=== PATIENT | female | born 1995 | race Two or more races ===

== ENCOUNTER 2018-09-10 07:11 | Emergency (ER) | payer OTHER ==
[2018-09-10 07:20] VITALS: BP 124/70
[2018-09-10] MEDS ORDERED: ERYTHROMYCIN 0.5% OPH OINT 1 GM UNIT DOSE OD ONE (08:04)
--- NOTE | 2018-09-10 08:11 | ER Document Report ---
ED General - General Chief Complaint: Vaginal Discharge Stated Complaint: SORE THROAT Time Seen by Provider: 09/10/18 07:55 Primary Care Provider: [facility] [Provider Group] - Follow up in 3-5 days [facility]Provider [facility] - Follow up in 3-5 days TRAVEL OUTSIDE OF THE [place] IN LAST 30 DAYS: No - HPI Notes: Patient is a 22-year-old female that presents to the emergency department for multiple chief complaints. Patient complaining of vaginal itching burning and discharge for the last week. She did try Monistat 7 and states today is her last day. She reports vaginal discharge has improved but the external itching and irritation has not. She reports frequent yeast infections and states this feels the same. She states she tested negative for gonorrhea and chlamydia 2 weeks ago and has only been sexually active with one partner. She is not currently on control and has not checked for . LMP 08/17/2018 which was reportedly normal for her. Patient also complaining of a sore throat and redness in her right eye that began last night. She states the throat feels scratchy and irritated. She denies fever, chills, cough or congestion. She reports drainage and redness in the right eye as well as a burning sensation. She denies ocular itching. She has not taken any medicine at home for symptoms. Past Medical History: Negative Past Surgical History: Negative Social History: Occasional alcohol. Denies tobacco or drug use Family History: Reviewed and noncontributory for presenting illness Allergies: Reviewed, see documented allergy list. REVIEW OF SYSTEMS: CONSTITUTIONAL : No fever No chills No diaphoresis No recent illness EENT: Red eye No vision changes No congestion Nsore throat CARDIOVASCULAR: No chest pain No palpitations RESPIRATORY: No shortness of breath No cough No difficulty breathing GASTROINTESTINAL: No abdominal pain No nausea No vomiting No diarrhea GENITOURINARY: Vaginal itching Vaginal discharge No dysuria No hematuria No difficulty urinating MUSCULOSKELETAL: No back pain No leg pain No arm pain SKIN: No rashes No lesions LYMPHATIC: No swollen, enlarged glands. NEUROLOGICAL: No lightheadedness No headache No weakness No paresthesias PSYCHIATRIC: No anxiety No depression PHYSICAL EXAMINATION: Vital signs reviewed, nursing noted reviewed. GENERAL: Well-appearing, well-nourished and in no acute distress. HEAD: Atraumatic, normocephalic. EYES: PERRLA, EOM, normal conjunctiva left eye, right conjunctival injection, no pain with ocular movement of right eye, clear right eye discharge. No periorbital erythema or edema. ENT: nares patent, mild bilateral tonsillar edema and erythema without exudates, uvula midline, moist mucous membranes. NECK: Normal range of motion, supple without lymphadenopathy LUNGS: Breath sounds clear to auscultation bilaterally and equal. No wheezes rales or rhonchi. HEART: Regular rate and rhythm without murmurs ABDOMEN: Soft, nontender, normoactive bowel sounds. No rebound, guarding, or rigidity. No masses appreciated. : Labial erythema with no external ulcerations or vesicles, thick white vaginal discharge, no cervical motion tenderness or adnexal tenderness, uterus soft and nontender EXTREMITIES: Nontender, good range of motion, no pitting or edema. NEUROLOGICAL: No focal neurological deficits. Moves all extremities spontaneously Motor and sensory grossly intact on exam. PSYCH: Normal mood, normal affect. SKIN: Warm, Dry, normal turgor, no rashes or lesions noted on exposed skin - Related Data Allergies/Adverse Reactions: kiwi Allergy (Verified 09/10/18 07:16) vancomycin Allergy (Verified 09/10/18 07:16) Past Medical History - Social History Smoking Status: Never Smoker Family History: Reviewed & Not Pertinent Physical Exam - Vital signs Vitals: Temp Pulse Resp BP Pulse Ox 98.0 F 92 14 124/70 97 09/10/18 07:19 09/10/18 07:19 09/10/18 07:19 09/10/18 07:19 09/10/18 07:19 Course - Re-evaluation Re-evalutation: 09/10/18 08:09 Vitals reviewed. Nursing notes reviewed. Patient was offered pelvic exam but since she had a negative gonorrhea and chlamydia test 2 weeks ago she has deferred this exam. She states her symptoms feel exactly like yeast infection she has had in the past. Her symptoms do sound consistent with yeast vaginitis and she will be treated with Diflucan. Patient told to follow with her residential glazier if your symptoms are not improving, she will be prescribed a second dose of Diflucan to take in a week if symptoms persist. Patient also has erythema to her right eye with clear drainage. There is no foreign material. Her symptoms are consistent with conjunctivitis either viral or bacterial. Patient will be covered with erythromycin ophthalmic. She does wear contact lenses and was instructed to keep them out until her symptoms completely resolve. She does not sleep in her contacts and there is no corneal ulcer or iritis. 09/10/18 10:00 Patient's rapid strep is negative. Her sore throat is likely viral in nature. There is no sign of peritonsillar retropharyngeal abscess or to necessitate further work-up. Patient has a negative urine test and UA is negative for acute infection. She is now requesting to have a pelvic exam performed and tested for gonorrhea and chlamydia. 09/10/18 10:25 Patient's pelvic exam shows thick white vaginal discharge with some erythematous irritation to her labia consistent with yeast vaginitis. Gonorrhea and Chlamydia cultures have been ordered. Patient does not wish to be prophylactically treated for gonorrhea and chlamydia. She would like to receive a phone call with her results and not wait in the emergency room for them. Patient was encouraged to follow with gynecology and primary care. Laboratory 09/10/18 09/10/18 08:10 08:10 Urine Color YELLOW Urine Appearance CLOUDY Urine pH 6.0 Ur Specific Sunset 1.026 Urine Protein NEGATIVE Urine Glucose (UA) NEGATIVE Urine Ketones NEGATIVE Urine Blood NEGATIVE Urine Nitrite NEGATIVE Urine Bilirubin NEGATIVE Urine Urobilinogen NEGATIVE Ur Leukocyte Esterase SMALL H Urine WBC (Auto) 2 Urine RBC (Auto) 5 Urine Bacteria (Auto) TRACE Squamous Epi Cells Auto 4 Urine Mucus (Auto) FEW Urine Ascorbic Acid NEGATIVE Urine HCG, Qual NEGATIVE Group A Strep Rapid NEGATIVE - Vital Signs Vital signs: Temp Pulse Resp BP Pulse Ox 98.0 F 92 14 124/70 97 09/10/18 07:19 09/10/18 07:19 09/10/18 07:19 09/10/18 07:19 09/10/18 07:19 - Laboratory Laboratory results interpreted by me: 09/10/18 08:10 Ur Leukocyte Esterase SMALL H Discharge - Discharge Clinical Impression: Yeast vaginitis, Sore throat Conjunctivitis Qualifiers: Conjunctivitis type: acute Acute conjunctivitis type: bacterial Laterality: right Qualified Code(s): H10.31 - Unspecified acute conjunctivitis, right eye Condition: Stable Disposition: HOME, SELF-CARE Instructions: Conjunctivitis ([facility]), Vaginal Yeast Infection ([facility]) Additional Instructions: Please return to the emergency department if you have any worsening, or concern of your symptoms. Please return to the emergency department if you develop chest pain, difficulty breathing, severe abdominal pain, or ongoing vomiting. Please follow-up with your primary care physician in 2-3 days and any other recommended physicians. If prescribed, take all medications as directed. If you have any questions or concerns do not hesitate to return the emergency department for evaluation. Contact your residential glazier for follow-up in the next few days if symptoms have not completely resolved Prescriptions: Erythromycin Base [Erythromycin Oph 1 Gm Oint Ud] 1 applic OD TID 5 Days tube Fluconazole [Diflucan] 150 mg PO ONCE PRN #1 tablet PRN Reason: yeast infection symptoms Referrals: [facility] [Provider Group] - Follow up in 3-5 days [facility] [Provider Group] - Follow up in 3-5 days
[2018-09-10 08:27] LABS: APPEARANCE,URINE CLOUDY; BILIRUBIN,URINE NEGATIVE (NEGATIVE); COLOR,URINE YELLOW; GLUCOSE, URINE NEGATIVE (NEGATIVE); KETONES,URINE NEGATIVE (NEGATIVE); LEUKOCYTE ESTERASE,URINE SMALL (NEGATIVE); NITRITE,URINE NEGATIVE (NEGATIVE); PROTEIN,URINE NEGATIVE (NEGATIVE); URINE SPECIFIC GRAVITY 1.026; UROBILINOGEN,URINE NEGATIVE mg/dL (<2.0)
[2018-09-10] MEDS ORDERED: FLUCONAZOLE 100 MG TABLET PO ONE (09:35)
[2018-09-10 10:46] LABS: BACTERIA (WET MOUNT) 4+ BACTERIA SEEN; EPITHELIALS (WET MOUNT) 3+ EPITHELIALS SEEN; RBCS (WET MOUNT) 1+ RBCS SEEN; T.VAGINALIS (WET MOUNT) NO TRICHOMONAS SEEN; WBCS (WET MOUNT) 1+ WBCS SEEN; YEAST (WET MOUNT) NO YEAST SEEN
[2018-09-10 11:56] LABS: CHLAM PCR NOT DETECTED (NOT DETECT)
== END 2018-09-10 10:59 | disposition home or self-care (01) ==
LOC: ER 07:11
DX: B37.3 Candidiasis of vulva and vagina (principal); J02.9 Acute pharyngitis, unspecified; H10.31 Unspecified acute conjunctivitis, right eye; Z91.018 Allergy to other foods; Z88.1 Allergy status to other antibiotic agents
CPT/HCPCS: 81001; 81025; 87070; 87210; 87491; 87591; 87880; 99283